=== PATIENT | female | born 1950 | race Caucasian/White ===

== ENCOUNTER 2018-12-27 09:02 | Emergency (ER) | payer MEDICARE, BC ==
[~2018-12-27] VITALS: Ht 162.6 cm; Wt 99.8 kg
[~2018-12-27 09:02] MED LIST: ACYCLOVIR 400400 MG PO; AMOXICILLIN500 M1 PO; AMOXICILLIN875 MG PO; ASPIRIN325 PO; BACTRIM 400-801 EACH PO; CALCIUM CARBO1250 MG PO; CELEXA 10 MG TA10 M1 PO; CELEXA20 MG PO; CELLCEPT500 MG PO; CLONAZEPAM PO; COZAAR 25MG TAB25 M1 PO; DESYREL50 MG PO; DILAUDID2 M1 PO; DILAUDID2 MG PO; FISH OIL500 MG PO; FLONASE 0.05%50 MCG NASAL; IMODIUM MULTI-1 EACH PO; LIPITOR40 MG PO; LODINE400 MG PO; MIRAPEX1.5 MG PO; NORCO 5-325 TA1 EACH PO; NYSTATIN 1100000 U/M PO; PREDNISONE 5 MG5 M1 PO; PROGRAF0.5 MG; PROTONIX40 M2 PO; RESTORIL15 MG PO; ROBINUL FORTE2 MG PO; SEVELLA PO; SIMVASTATIN10 MG PO; TESSALON PERLE100 MG PO; TOPROL XL25 MG PO; TORADOL 10 MG T10 MG PO; TORSEMIDE10 MG PO; TRAZODONE HCL50 MG PO; TYLENOL325 MG PO; ULTRAM 50MG TAB50 MG PO; VENTOLIN HFA INH8 GM IH; VITAMIN D 5050000 I1 PO; ZESTRIL2.5 MG PO
[2018-12-27] MEDS ORDERED: VITAMIN D2000 UNIT PO (09:44)
[2018-12-27] MEDS ORDERED: RAPAMUNE0.5 MG PO (09:45)
[2018-12-27] MEDS ORDERED: LOMOTIL 2.5-0.01 TAB PO (09:46)
[2018-12-27] MEDS ORDERED: DAPSONE100 MG PO (09:46)
[2018-12-27] MEDS ORDERED: ZETIA10 MG PO (09:47)
[2018-12-27] MEDS ORDERED: SERTRALINE HCL100 MG PO (09:47)
[2018-12-27] MEDS ORDERED: EVISTA60 MG PO (09:48)
[2018-12-27] MEDS ORDERED: MIRAPEX ER1.5 MG PO (09:49)
[2018-12-27] MEDS ORDERED: TESSALON PERLE100 MG PO (09:50)
[2018-12-27] MEDS ORDERED: MUCINEX100 MG PO (09:51)
[2018-12-27] MEDS ORDERED: DILAUDID1 MG/1 M1 PO (09:52)
[2018-12-27] MEDS ORDERED: TRAMADOL 50 MG50 MG PO (09:52)
[2018-12-27 10:51] VITALS: BP 113/65
== END 2018-12-27 10:52 | disposition still patient (30) ==
LOC: M.ERS 09:02
DX: S20.212A Contusion of left front wall of thorax, initial encounter (principal); S60.512A Abrasion of left hand, initial encounter; M25.552 Pain in left hip; M25.551 Pain in right hip; M19.90 Unspecified osteoarthritis, unspecified site; N18.6 End stage renal disease; Z96.653 Presence of artificial knee joint, bilateral; Z99.2 Dependence on renal dialysis; Z88.6 Allergy status to analgesic agent; Z88.8 Allergy status to other drugs, medicaments and biological substances; W18.39XA Other fall on same level, initial encounter; Y93.E5 Activity, floor mopping and cleaning; Y92.090 Kitchen in other non-institutional residence as the place of occurrence of the external cause; Y99.8 Other external cause status

== ENCOUNTER 2019-06-14 12:21 | Emergency (ER) | payer MEDICARE, BC ==
[~2019-06-14] VITALS: Ht 162.6 cm; Wt 101.6 kg
[~2019-06-14 12:21] MED LIST changes: +DAPSONE100 MG PO; +DILAUDID1 MG/1 M1 PO; +EVISTA60 MG PO; +LOMOTIL 2.5-0.01 TAB PO; +MIRAPEX ER1.5 MG PO; +MUCINEX100 MG PO; +RAPAMUNE0.5 MG PO; +SERTRALINE HCL100 MG PO; +TRAMADOL 50 MG50 MG PO; +VITAMIN D2000 UNIT PO; +ZETIA10 MG PO
[2019-06-14] MEDS ORDERED: ASA81BEC PO (12:38)
[2019-06-14] MEDS ORDERED: DEMADEX20 MG PO (12:38)
[2019-06-14] MEDS ORDERED: MYCOPHENOLATE500 MG PO (12:43)
[2019-06-14 13:07] LABS: ABSOLUTE BASOPHILS 0.1 thou/uL (0.0-0.2); ABSOLUTE EOSINOPHILS 0.1 thou/uL (0.0-0.7); ABSOLUTE LYMPHOCYTES 0.9 thou/uL (0.8-5.3); ABSOLUTE MONOCYTES 0.4 thou/uL (0.0-1.2); ABSOLUTE NEUTROPHILS 5.4 thou/uL (1.6-8.1); BASOPHILS 1.4 %; EOSINOPHILS 0.7 %; HEMATOCRIT 39.6 % (37.0-47.0); HEMOGLOBIN 13.1 gm/dL (12.0-15.0); LYMPHOCYTES 12.9 %; MCH 35.7 pg (26.0-34.0); MCHC 33.2 g/dL (28.0-37.0); MCV 107.7 fL (80.0-100.0); MONOCYTES 6.4 %; MPV 7.8 fl. (7.2-11.1); NUCLEATED RBCS 0 /100WBC; PLATELET COUNT* 126 thou/uL (150-400); POLYS 78.6 %; RBC 3.68 mil/uL (4.20-5.00); RDW-CV 14.9 % (10.5-14.5); WBC 6.8 thou/uL (4.0-11.0)
[2019-06-14 13:17] LABS: CALCIUM 7.4 mg/dL (8.5-10.1); CREATININE 5.3 mg/dL (0.6-1.3); POTASSIUM 4.1 mmol/L (3.5-5.1)
[2019-06-14 13:22] LABS: ALBUMIN 3.4 g/dL (3.4-5.0); TOTAL BILIRUBIN 0.8 mg/dL (<0.1-1.0); TOTAL PROTEIN 6.6 g/dL (6.4-8.2)
[2019-06-14 15:03] VITALS: BP 106/73
== END 2019-06-14 15:04 | disposition home or self-care (01) ==
LOC: M.ERS 12:21
PROVIDERS: Nurse Practitioner Psychiatric/Mental Health
DX: T82.858A Stenosis of other vascular prosthetic devices, implants and grafts, initial encounter (principal); M19.90 Unspecified osteoarthritis, unspecified site; M41.9 Scoliosis, unspecified; N18.6 End stage renal disease; Z88.1 Allergy status to other antibiotic agents; Z88.5 Allergy status to narcotic agent; Z88.8 Allergy status to other drugs, medicaments and biological substances; Z99.2 Dependence on renal dialysis; Z96.659 Presence of unspecified artificial knee joint; Y84.8 Other medical procedures as the cause of abnormal reaction of the patient, or of later complication, without mention of misadventure at the time of the procedure; Y92.89 Other specified places as the place of occurrence of the external cause